=== PATIENT | female | born 1960 | race Caucasian/White ===

== ENCOUNTER 2016-10-13 17:42 | Emergency (ER) | payer SELFPAY ==
[~2016-10-13] VITALS: Ht 157.5 cm; Wt 56.0 kg
[~2016-10-13 17:42] MED LIST: IBUP-232 PO; [UNRECOGNIZED DRUG - REMARK]
[2016-10-13 17:48] VITALS: BP 131/76; PULSE 96; RESP 17; TEMP 98.9; O2SAT 97
--- NOTE | 2016-10-13 17:53 | PD ---
HPI . right ankle injury 1 week ago Chief Complaint: Injury Time Seen by Provider: 17:53 Travel History International Travel<30 days: No Contact w/Intl Traveler<30days: No Traveled to known affect area: No History of Present Illness HPI 56 yr old female with hx of tobaccoism and HTN here with c/o right ankle pain x 1 week. Patient tells me she was walking in a [employer], when she slipped in laundry detergent causing her to twist her right ankle. She has been trying to deal with it at home and the pain is not getting better. There is some swelling to the lateral malleolus. She tells me pain is 8/10 without further radiation. PFSH Past Medical History Cardiovascular Problems: Yes (HTN) Past Surgical History Abdominal Surgery: Yes (HERNIA , MESH) Section: Yes Hysterectomy: Yes Social History Alcohol Use: Yes (DAILY) Tobacco Use: No Substance Use: No Allergies-Medications (Allergen,Severity, Reaction): Coded Allergies: No Known Allergies (Unverified , 10/13/16) Reported Meds & Prescriptions Reported Meds & Active Scripts Active Ibuprofen 800 Mg Tab 800 Mg PO TID Reported [Htn Med] [Anxiety Med At Night] Review of Systems General / Constitutional: No: Fever Eyes: No: Visual changes HENT: No: Headaches Cardiovascular: No: Chest Pain or Discomfort Respiratory: No: Shortness of Breath Gastrointestinal: No: Abdominal Pain Genitourinary: No: Dysuria Musculoskeletal: Positive: Pain (right ankle pain) Skin: No Rash Neurologic: No: Weakness Psychiatric: No: Depression Endocrine: No: Polydipsia Hematologic/Lymphatic: No: Easy Bruising Physical Exam Narrative GENERAL: AAO x 3, no acute distress, Well-nourished, well-developed patient. SKIN: Warm and dry. No visible rashes or bruising. HEAD: Normocephalic and atraumatic. EYES: No scleral icterus. No injection or drainage. ENT: No nasal drainage noted. Mucous membranes pink. Airway patent. NECK: Supple, trachea midline. No JVD. CARDIOVASCULAR: Regular rate and rhythm without murmurs, gallops, or rubs. RESPIRATORY: Breath sounds equal bilaterally. No accessory muscle use. No rhonchi or rales. GASTROINTESTINAL: Abdomen soft, non-tender, nondistended. EXTREMITIES: No cyanosis. mild edema to lateral malleolus and tenderness along lateral ankle and malleolus. Rotation limited by pain. Dorsi and plantar flexion normal. BACK: Nontender without obvious deformity. NEURO: grossly intact, sensation in right foot normal PSYCH: AAO x 3, normal affect. Data Data Last Documented VS Vital Signs Date Time Temp Pulse Resp B/P Pulse Ox O2 Delivery O2 Flow Rate FiO2 10/13/16 17:52 Room Air 10/13/16 17:48 98.9 96 17 131/76 97 Orders Ankle, Complete ([id number]) (10/13/16 17:56) Ketorolac Inj (Toradol Inj) (10/13/16 18:00) Mango Bandage (10/13/16 18:46) MDM Medical Decision Making Medical Screen Exam Complete: Yes Emergency Medical Condition: Yes Medical Record Reviewed: Yes Differential Diagnosis right ankle sprain, fracture, bone contusion Narrative Course 56 yr old female here with right ankle pain. It does not appear broken. Imaging ordered as she has point tenderness along lateral ankle/lateral malleolus. Toradol in ED. Last Impressions Ankle X-Ray 10/13/16 071 Signed Impressions: Service Date/Time: Thursday, October 13, 2016 18:09 - CONCLUSION: Soft tissue swelling with no acute fracture or malalignment. Alex Rodriges MD Discussed negative results. Mango wrap provided. Patient ambulating normally. Recommend PCP f/u. Patient verbalized understanding of instructions, questions were answered, and thanked me for their care. I advised them if their condition worsens, please return to the nearest emergency room for further care. Diagnosis Primary Impression: Right ankle pain Qualified Code: M25.571 - Acute right ankle pain Patient Instructions: General Instructions Additional Instructions: Rest the affected area as much as possible. Ice this area for 15-20 minutes at a time. You can do this every hour or as much as tolerated. Keep this area compressed (mango bandage) as tolerated. Elevate this area. Use ibuprofen as needed for pain and inflammation. Follow-up with your primary care provider. Med/Other Pt SpecificInfo: Prescription(s) given Scripts Ibuprofen 800 Mg [id number] Mg PO TID #21 TAB Prov:Evan Lee MD 10/13/16 Disposition: 01 DISCHARGE HOME Condition: Stable Lisa Vital Oct 13, 2016 17:53
[2016-10-13] MEDS ORDERED: HTN MED (17:57)
[2016-10-13] MEDS ORDERED: KETOROLAC TROMETHAMINE 60 MG/2 ML (IM) VIAL IM ONE (18:00)
--- NOTE | 2016-10-13 18:27 | RADRPT ---
EXAM DATE/TIME: 10/13/2016 18:09 [facility] COMPARISON: No previous studies available for comparison. INDICATIONS : Fell 1 week ago, has right ankle pain MEDICAL HISTORY : Hypertension. SURGICAL HISTORY : None. ENCOUNTER: Initial ACUITY: 1 week PAIN SCORE: 8/10 LOCATION: Right ankle FINDINGS: AP, lateral and oblique views of the right ankle were obtained demonstrates soft tissue swelling over the lateral malleolus with no acute fracture or malalignment. The ankle mortise is intact. CONCLUSION: Soft tissue swelling with no acute fracture or malalignment. Alex Rodriges MD on October 13, 2016 at 18:25 Board Certified Radiologist. This report was verified electronically.
[2016-10-13] MEDS ORDERED: IBUP800T23 PO (18:46)
== END 2016-10-13 18:58 | disposition home or self-care (01) ==
LOC: PHEFT 17:42
DX: M25.571 Pain in right ankle and joints of right foot (principal); R22.41 Localized swelling, mass and lump, right lower limb; I10 Essential (primary) hypertension; Z87.891 Personal history of nicotine dependence; W18.49XA Other slipping, tripping and stumbling without falling, initial encounter; X50.1XXA Overexertion from prolonged static or awkward postures, initial encounter; Y92.512 Supermarket, store or market as the place of occurrence of the external cause
CPT/HCPCS: 73610; 96372; 99284; J1885

== ENCOUNTER 2017-01-07 19:05 | Emergency (ER) | payer SELFPAY ==
[~2017-01-07] VITALS: Ht 157.5 cm; Wt 54.6 kg
[~2017-01-07 19:05] MED LIST changes: +HTN MED; -IBUP-232 PO; +IBUP800T23 PO
[2017-01-07 19:10] VITALS: BP 124/71; PULSE 100; RESP 18; TEMP 98.2; O2SAT 98
--- NOTE | 2017-01-07 19:44 | PD ---
HPI Chief Complaint: Laceration/Skin Injury Time Seen by Provider: 19:27 Travel History International Travel<30 days: No Contact w/Intl Traveler<30days: No Traveled to known affect area: No History of Present Illness HPI 56-year-old female with a 7 hour history of laceration to her right anterior everett area. She says that she cut the everett with a recycling bin and promptly cleaned it with peroxide and water. She is able to dorsiflex and plantar flex her leg and denies numbness tingling or sensation changes. She denies fevers, chills, chest pain, shortness of breath, or any other complaints. She complains of moderate pain. Her last tetanus shot is unknown. PFSH Past Medical History Cardiovascular Problems: Yes (HTN, OTHER UNKNOW HEART PROBLEM) Gastrointestinal Disorders: Yes (HERNIA) Hypertension: Yes ?: Unknown Past Surgical History Abdominal Surgery: Yes (HERNIA , MESH) Section: Yes (X2) Hysterectomy: Yes Social History Alcohol Use: Yes (3XS WEEKLY) Tobacco Use: Yes (1 PPD) Substance Use: No Allergies-Medications (Allergen,Severity, Reaction): Coded Allergies: No Known Allergies (Unverified , 01/07/17) Reported Meds & Prescriptions Reported Meds & Active Scripts Active Tramadol (Tramadol HCl) 50 Mg Tab 50 Mg PO Q8H PRN 3 Days Keflex (Cephalexin) 500 Mg Capsule 500 Mg PO Q8H 7 Days Reported [Htn Med] Review of Systems Except as stated in HPI: all other systems reviewed are Neg Physical Exam Narrative 56-year-old female complaining of wound to right anterior everett. GENERAL: Well-developed well-nourished in no apparent distress SKIN: Focused skin assessment warm/dry. Right anterior everett with a 4-5 cm laceration exposing fascia. Skin is mobile over fascia but does not include fascia. Bleeding controlled. Not grossly contaminated HEAD: Atraumatic. Normocephalic. EYES: Pupils equal and round. No scleral icterus. No injection or drainage. ENT: No nasal bleeding or discharge. Mucous membranes pink and moist. NECK: Trachea midline. No JVD. CARDIOVASCULAR: Regular rate and rhythm. No murmur appreciated. RESPIRATORY: No accessory muscle use. Clear to auscultation. Breath sounds equal bilaterally. GASTROINTESTINAL: Abdomen soft, non-tender, nondistended. Hepatic and splenic margins not palpable. MUSCULOSKELETAL: No obvious deformities. No clubbing. No cyanosis. No edema. She has full range of motion of foot and ankle pulses present neuro intact NEUROLOGICAL: Awake and alert. No obvious cranial nerve deficits. Motor grossly within normal limits. Normal speech. PSYCHIATRIC: Appropriate mood and affect; insight and judgment normal. Data Data Last Documented VS Vital Signs Date Time Temp Pulse Resp B/P (MAP) Pulse Ox O2 Delivery O2 Flow Rate FiO2 01/07/17 19:10 98.2 100 18 124/71 (88) 98 Orders Orders Tetanus/Diphtheria Tox Adult (Tetanus/Di (01/07/17 19:45) MDM Medical Decision Making Medical Screen Exam Complete: Yes Emergency Medical Condition: Yes Differential Diagnosis Right anterior everett: Laceration versus abrasion versus avulsion Narrative Course 56-year-old female with a 7 hour history of laceration to her right anterior everett area. She says that she cut the everett with a recycling bin and promptly cleaned it with peroxide and water. She is able to dorsiflex and plantar flex her leg and denies numbness tingling or sensation changes. He complains of moderate pain. Her last tetanus shot is unknown. Wound is 5-6 cm and linear. No obvious signs of infection. Tetanus shot given today 3 horizontal mattress sutures tolerated procedure tolerated well. Antibiotics given due to the depth of the wound. Advised him when patient should return to the emergency department Have sutures removed in in 10-14 days. Procedures Procedure Narrative LACERATION LOCATION: Right mid anterior everett LENGTH: 5-6 cm NUMBER OF STITCHES/SHANNON: 3 horizontal mattress sutures REPAIR: The area of the laceration was prepped with Betadine and sterilely draped. The laceration was infiltrated with 1% lidocaine. The wound was copiously irrigated and explored without evidence of foreign body, tendon injury or neurovascular injury. The wound was closed using 5-0 Prolene. This was a single layer repair. Note that patient's skin was rather friable. A sterile dressing was applied. The patient was advised to keep the dressing clean and dry. Patient tolerated the procedure well. Diagnosis Primary Impression: Laceration of skin of left lower leg Qualified Codes: S81.812A - Laceration without foreign body, left lower leg, initial encounter Referrals: Primary Care Physician Additional Instructions: Keep site clean and dry. Follow-up with primary care physician. Recommend removal of sutures in 10-14 days. Take all antibiotics as prescribed. If site Develops increased redness, pain, leaning return to the emergency department for further treatment and patient Scripts Tramadol (Tramadol) 50 Mg Tab 50 MG PO Q8H Y for PAIN for 3 Days, #9 TAB 0 Refills Prov: Naun Car MD 01/07/17 Cephalexin (Keflex) 500 Mg Capsule 500 MG PO Q8H for Infection for 7 Days, #21 CAP 0 Refills Prov: Geneva Juarez 01/07/17 Disposition: 01 DISCHARGE HOME Condition: Stable Geneva Juarez Jan 07, 2017 19:44
[2017-01-07] MEDS ORDERED: TETANUS/DIPHTHERIA TOXOID ADULT 0.5 ML VIAL IM ONE (19:45)
[2017-01-07] MEDS ORDERED: CEPH-460 PO (20:24)
[2017-01-07] MEDS ORDERED: TRAM50TA PO (20:27)
== END 2017-01-07 20:42 | disposition home or self-care (01) ==
LOC: PHEFT 19:05
DX: S81.812A Laceration without foreign body, left lower leg, initial encounter (principal); I10 Essential (primary) hypertension; W26.9XXA Contact with unspecified sharp object(s), initial encounter; F17.210 Nicotine dependence, cigarettes, uncomplicated
CPT/HCPCS: 12002; 90471; 90714

== ENCOUNTER 2017-03-28 14:51 | Emergency (ER) | payer SELFPAY ==
[~2017-03-28] VITALS: Ht 157.5 cm; Wt 56.0 kg
[~2017-03-28 14:51] MED LIST changes: +CEPH-460 PO; -IBUP800T23 PO; +TRAM50TA PO; -[UNRECOGNIZED DRUG - REMARK]
[2017-03-28 14:55] VITALS: BP 153/80; PULSE 106; RESP 16; TEMP 98.6; O2SAT 99
--- NOTE | 2017-03-28 15:53 | PD ---
HPI Chief Complaint: Laceration/Skin Injury Time Seen by Provider: 15:14 Travel History International Travel<30 days: No Contact w/Intl Traveler<30days: No Traveled to known affect area: No History of Present Illness HPI 56-year-old female here with laceration to the right lower extremity. Patient injured the area by walking into the sharp edge of a bed rail. She has a 3 cm laceration to the right everett. Injury occurred prior to arrival. Tetanus immunization is up-to-date. Symptom severity is moderate. No aggravating or any factors. PFSH Past Medical History Cardiovascular Problems: Yes (HTN, OTHER UNKNOW HEART PROBLEM) Gastrointestinal Disorders: Yes (HERNIA) Hypertension: Yes ?: Not Past Surgical History Abdominal Surgery: Yes (HERNIA , MESH) Section: Yes (X2) Hysterectomy: Yes Social History Alcohol Use: Yes (3XS WEEKLY) Tobacco Use: Yes (1 PPD) Substance Use: No Allergies-Medications (Allergen,Severity, Reaction): Coded Allergies: No Known Allergies (Unverified Adverse Reaction, Unknown, 03/28/17) Reported Meds & Prescriptions Reported Meds & Active Scripts Active No Active Prescriptions or Reported Medications Review of Systems Except as stated in HPI: all other systems reviewed are Neg Physical Exam Narrative GENERAL: Alert female. Well-appearing. SKIN: Warm and dry. 3 cm laceration to the right lower extremity. HEAD: Normocephalic. EYES: No injection or drainage. NECK: Supple, trachea midline. CARDIOVASCULAR: Regular rate and rhythm without murmurs, gallops, or rubs. RESPIRATORY: Breath sounds equal bilaterally. No accessory muscle use. GASTROINTESTINAL: Abdomen soft, non-tender, nondistended. MUSCULOSKELETAL: No cyanosis, or edema. Right lower extremity: 3 cm laceration which is taking tissue. Vascular tendon injury identified. No foreign body. She has normal sensation distally. 2+ dorsal pedis pulse. Cap refill. Data Data Last Documented VS Vital Signs Date Time Temp Pulse Resp B/P (MAP) Pulse Ox O2 Delivery O2 Flow Rate FiO2 03/28/17 14:55 98.6 106 16 153/80 (104) 99 Orders Orders Ed Discharge Order (03/28/17 15:56) MDM Medical Decision Making Medical Screen Exam Complete: Yes Emergency Medical Condition: Yes Differential Diagnosis Laceration right lower extremity, tendon injury, vascular injury, Narrative Course 56-year-old female with laceration right lower extremity. Laceration repair performed. Procedures Procedure Narrative LACERATION LOCATION: [Right lower extremity] LENGTH: 3 cm NUMBER OF STITCHES/SHANNON: 6 REPAIR: The area of the laceration was prepped with Betadine and sterilely draped. The laceration was infiltrated with 1% lidocaine with epi. The wound was copiously irrigated and explored without evidence of foreign body, tendon injury or neurovascular injury. The wound was closed using 3-0 Ethilon. This was a single layer repair. A sterile dressing was applied. The patient was advised to keep the dressing clean and dry. Patient tolerated the procedure well. Diagnosis Primary Impression: Laceration of right lower extremity Qualified Codes: S81.811A - Laceration without foreign body, right lower leg, initial encounter Referrals: Primary Care Physician Patient Instructions: General Instructions Departure Forms: Tests/Procedures Additional Instructions: Do not submerge the wound in water. Sutures need to be removed in 10 days. Scripts No Active Prescriptions or Reported Meds Disposition: 01 DISCHARGE HOME Condition: Stable Lola Tillman Mar 28, 2017 15:53
== END 2017-03-28 16:06 | disposition home or self-care (01) ==
LOC: PHEFT 14:51
DX: S81.811A Laceration without foreign body, right lower leg, initial encounter (principal); I10 Essential (primary) hypertension; F17.200 Nicotine dependence, unspecified, uncomplicated; W22.8XXA Striking against or struck by other objects, initial encounter
CPT/HCPCS: 12013